=== PATIENT | male | born 1995 | race African-American/Black ===

== ENCOUNTER 2021-08-27 20:53 | Emergency (ER) | payer SELFPAY ==
[2021-08-27] MEDS ORDERED: cefTRIAXone\\ROCEPHIN 500 MG VIAL ONE (21:49)
[2021-08-27] MEDS ORDERED: Sterile Water 10 ML ONE (21:50)
[2021-08-27 22:04] LABS: Bilirubin Neg (Negative); Blood, Urine 10 (Negative); Clarity Clear (Clear); Glucose, Urine (Dipstick) Normal (Negative); Ketone, Urine Negative (Negative); Leukocyte Negative (Negative); Nitrite Negative (Negative); Protein, Urine (Dipstick) Negative (Neg-Trace); Specific Gravity, Urine 1.015 (1.002-1.036); Urobilinogen Normal mg/dL (Less than 2)
[2021-08-27 22:12] LABS: Bacteria/HPF None Seen HPF (None Seen); RBC/HPF 0-3 HPF (0-3); Squamous Epithelial 0-3 HPF (0-3); WBC/HPF None Seen HPF (0-3)
[2021-08-30 03:45] LABS: Chlam.trachomatis by PCR,Urine Not Detected (NotDetected)
== END 2021-08-27 22:42 | disposition home or self-care (01) ==
LOC: CSHERS 20:53
DX: R36.9 Urethral discharge, unspecified (principal)
CPT/HCPCS: 81003; 81015; 87491; 87591; 96372; 99283; J0696